=== PATIENT | female | born 1945 ===

== ENCOUNTER 2024-01-07 16:06 | Outpatient (REF) | payer MEDICARE, OTHER, SELFPAY | END 2024-01-07 16:07 | disposition home or self-care (01) | LOC: NCHCN 16:06 | PROVIDERS: Visit Provider Family Medicine | DX: R19.7 Diarrhea, unspecified (principal) | CPT/HCPCS: 80061; 87177 ==

== ENCOUNTER 2024-10-08 16:17 | Outpatient (REF) | payer MEDICARE, OTHER, SELFPAY ==
[2024-10-08 19:28] LABS: HCT 42.9 % (36.0-46.0); HGB 14.3 g/dL (11.2-15.7); MCH 31.5 pg (27.0-33.0); MCHC 33.3 % (32.0-36.0); MCV 95 fL (80-95); MPV 11.1 fL (8.0-11.0); Platelet Count 242 10^3/uL (130-400); RBC 4.54 10^6/uL (3.93-5.22); RDW 12.2 % (11.7-14.6); RDW-SD 42.6 fL; WBC 5.94 10^3/uL (4.4-10.8)
[2024-10-08 19:47] LABS: Anion Gap 7.5 mmol/L (3-11); BUN 19 mg/dL (7-18); CO2 29.5 mmol/L (21.0-32.0); Calcium 9.4 mg/dL (8.5-10.1); Calculated LDL 122 mg/dL (<100); Chloride 106 mmol/L (98-107); Cholesterol 197 mg/dL (<200); Estimated GFR 58.02 (mL/min/1.73m2); Glucose 80 mg/dL (74-106); HDL Cholesterol 62 mg/dL (>or=50); Potassium 4.0 mmol/L (3.5-5.1); Sodium 143 mmol/L (136-145); TSH (W/Ref FT4) 1.48 uIU/mL (0.36-3.74); Triglyceride 66 mg/dL (<150)
== END 2024-10-08 16:18 | disposition home or self-care (01) ==
LOC: NCHCN 16:17
PROVIDERS: Visit Provider Family Medicine
DX: Z00.00 Encounter for general adult medical examination without abnormal findings (principal); R53.83 Other fatigue
CPT/HCPCS: 80048; 80061; 85027; 84443